=== PATIENT | female | born 1970 | race Caucasian/White ===

== ENCOUNTER → 2020-11-26 | Outpatient (CLI) | payer OTHER ==
--- NOTE | 2020-11-26 14:34 | RAD ---
Study: XR LUMBAR SPINE 2-3V Indication: Lumbar spine pain. Disability determination. Comparison: None. Findings: 5 nonrib-bearing lumbar vertebral elements. Grade 1 anterolisthesis of L5 on S1. Mild disc space narrowing at L5-S1 and eccentric to the left at L1-L2. Advanced lower lumbar facet degeneration predominantly at L4-L5 and L5-S1 but also involving t he left L3-L4 facet. There appears to be narrowing across the left L1-L2 facet articulation as well. Mild superior endplate concavity at L2 with faint subjacent sclerosis. Slight asymmetric inferior end plate depression lateralized to the right on the AP view. Superior endplate sclerosis at T12. Impression: 1. Findings involving the superior endplate of T12, inferior endplate of L1 and superior endplate of L2 which could be degenerative though the sequela of mild chronic compression deformities is possible . No radiographic evidence for an acute osseous abnormality. 2. Grade 1 anterolisthesis of L5 on S1. Mild disc space narrowing at L5-S1 and eccentric to the left at L1-L2. 3. Advanced facet arthrosis at L4-L5 and L5-S1 for patient age. Electronically signed by: DAMIR VALENTE MD (11/26/2020 2:32 PM) [id number]
== END ==
LOC: RAD 10:23
PROVIDERS: ATTEND Family Medicine
DX: M47.817 Spondylosis without myelopathy or radiculopathy, lumbosacral region (principal); M48.07 Spinal stenosis, lumbosacral region; G95.89 Other specified diseases of spinal cord
CPT/HCPCS: 72100